=== PATIENT | female | born 1990 | race Caucasian/White ===

== ENCOUNTER 2016-07-17 14:13 | Emergency (ER) | payer SELFPAY ==
[~2016-07-17] VITALS: Ht 162.6 cm; Wt 59.9 kg
[2016-07-17] MEDS ORDERED: ONDANSETRON 4 MG/2 ML VIAL IV ONE (14:45)
[2016-07-17] MEDS ORDERED: IV NS 1000 ML 1,000 ML IV ONE (14:45)
[2016-07-17] MEDS ORDERED: ONDANSETRON 4 MG/2 ML VIAL ONE (14:58)
--- NOTE | 2016-07-17 15:28 | NUR ---
PO challenge done. No vomiting seen while in ER. Patient discharged to home in stable conditon. Written and verbal after care instructions given to patient. Patient verbalizes understanding of instructions.
[2016-07-17 15:46] VITALS: BP 120/78
== END 2016-07-17 15:47 | disposition home or self-care (01) ==
LOC: ER 14:13
DX: O26.891 Other specified pregnancy related conditions, first trimester (principal); Z3A.01 Less than 8 weeks gestation of pregnancy; F17.200 Nicotine dependence, unspecified, uncomplicated
CPT/HCPCS: 96361; 96374; 99284; A4663; J2405; J7030